=== PATIENT | female | born 1975 | race African-American/Black ===

== ENCOUNTER 2022-06-26 21:20 | Inpatient (IN) ==
[2022-06-26] MEDS ORDERED: methylPREDNISolone SOD SUC 125 MG/2 ML VIAL IV STA (21:41)
[2022-06-26] MEDS ORDERED: ALBUTEROL/IPRATROPIUM 3 ML NEB RESP TX STA (21:41)
[2022-06-26 22:14] LABS: Basophils # 0.1 10*3/uL (0.0-0.2); Basophils % 0.2 % (0.0-0.8); Eosinophils % 0.1 % (0.00-10.9); Hematocrit 23.6 VOL% (35.7-47.0); Hemoglobin 8.1 GM/DL (12.0-16.0); Immature Granulocytes % 4.2 %; Immature Granulocytes Absolute 1.71 #; Lymphocytes # 2.1 10*3/uL (1.4-4.0); Lymphocytes % 5.1 % (21.3-54.2); Mean Corpuscular HGB Conc 34.3 GM/DL (32-36); Mean Corpuscular Volume 100.9 FL (87-102); Mean Platelet Volume 13.3 FL (9.6-12.0); Monocytes # 2.8 10*3/uL (0.11-0.8); NRBC # 0.02 10*3/uL; Neutrophils % 83.4 % (38.7-73.9); Red Blood Count 2.34 MC/CUMM (3.8-5.5); Red Cell Distribution Width 20.8 % (9.3-17.3)
[2022-06-26 22:21] LABS: Platelet Count 78 T/CUMM (130-400); White Blood Count 40.4 T/CUMM (4-12)
[2022-06-26] MEDS ORDERED: cefTRIAXone 1,000 MG in SODIUM CHLORIDE 0.9% 100 ML IV STA (22:27)
[2022-06-26 22:33] LABS: Albumin 2.3 G/DL (3.4-5.0); Bilirubin,Total 1.4 MG/DL (0.20-1.00); Calcium 7.6 MG/DL (8.5-10.1); Osmolality,Calculated 283.2 MOS/KG (273-304); Potassium 5.2 MMOL/L (3.5-5.1); Total Protein 4.8 G/DL (6.4-8.2)
[2022-06-26 22:38] LABS: Anisocytosis 1+; Band Neutrophils 2 % (0-10); Burr Cells 1+; Hypochromia 1+; Lymphocytes 5 % (20-55); Total Cells Counted 100
[2022-06-26 22:39] LABS: Schistocytes Few; Target Cells Few
[2022-06-26 22:40] LABS: Platelet Estimate Decreased
[2022-06-26 23:45] LABS: Bacteria,Urine Occasional /HPF (Few); Bilirubin,Urine Negative (Negative); Blood, Urine Trace mg/dL (Negative); Glucose,Urine (UA) Negative (Negative); Ketones,Urine Negative (Negative); Nitrite,Urine Negative (Negative); Protein,Urine 100 mg/dL (Negative); RBC,Urine 1 /HPF (0-4); Squamous Epithelial Cell,Urine Occasional /HPF (0-10); Urine Appearance Clear (Clear); Urine Color Yellow (Yellow); Urine Urobilinogen 0.2 eU/dL (<2.0); Urine pH 5.5 (4.5-8.0)
[2022-06-26] MEDS ORDERED: FUROSEMIDE 40 MG/4 ML VIAL IV STA (23:58)
[2022-06-27] MEDS ORDERED: GLUCAGON 1 MG VIAL IM PRN (00:04)
[2022-06-27] MEDS ORDERED: DEXTROSE 10% 250 ML BAG IV PRN (00:04)
[2022-06-27] MEDS ORDERED: ONDANSETRON 4 MG/2 ML VIAL IV PRN (00:04)
[2022-06-27] MEDS ORDERED: ACETAMINOPHEN 325 MG TABLET PO PRN (00:04)
[2022-06-27] MEDS ORDERED: SIMETHICONE CHEW 125 MG TABLET PO PRN (00:04)
[2022-06-27] MEDS: AZITHROMYCIN INJ 500 MG in SODIUM CHLORIDE 0.9% 250 ML IV SCH (01:30)
[2022-06-27] MEDS: ALBUTEROL/IPRATROPIUM 3 ML NEB RESP TX SCH ×4 (01:48→19:26)
[2022-06-27 04:31] LABS: Basophils % 0.1 % (0.0-0.8); Hematocrit 23.2 VOL% (35.7-47.0); Hemoglobin 8.1 GM/DL (12.0-16.0); Immature Granulocytes % 3.5 %; Immature Granulocytes Absolute 1.32 #; Lymphocytes # 1.2 10*3/uL (1.4-4.0); Lymphocytes % 3.3 % (21.3-54.2); Mean Corpuscular HGB Conc 34.9 GM/DL (32-36); Mean Corpuscular Volume 98.7 FL (87-102); Mean Platelet Volume 13.1 FL (9.6-12.0); Monocytes # 1.3 10*3/uL (0.11-0.8); Monocytes % 3.4 % (1.7-12.7); Neutrophils % 89.7 % (38.7-73.9); Platelet Count 75 T/CUMM (130-400); Red Blood Count 2.35 MC/CUMM (3.8-5.5); Red Cell Distribution Width 20.6 % (9.3-17.3); White Blood Count 37.9 T/CUMM (4-12)
[2022-06-27 04:49] LABS: Band Neutrophils 4 % (0-10); Eosinophils 1 % (0-10); Hypochromia 1+; Lymphocytes 3 % (20-55); Total Cells Counted 100
[2022-06-27 04:50] LABS: Acanthocytes Few; Anisocytosis 1+; Burr Cells 1+; Macrocytosis 1+; Platelet Estimate Decreased; Target Cells Slight
[2022-06-27 04:54] LABS: Albumin 2.3 G/DL (3.4-5.0); Bilirubin,Total 1.4 MG/DL (0.20-1.00); Calcium 7.9 MG/DL (8.5-10.1); Osmolality,Calculated 285.2 MOS/KG (273-304); Potassium 5.3 MMOL/L (3.5-5.1); Total Protein 4.9 G/DL (6.4-8.2)
[2022-06-27] MEDS: methylPREDNISolone SOD SUC 40 MG/1 ML VIAL IV SCH ×3 (06:13→22:33)
[2022-06-27] MEDS ORDERED: ENOXAPARIN 40 MG/0.4 ML SYRINGE ONE (07:53)
[2022-06-27] MEDS: DOCUSATE SODIUM 100 MG CAPSULE PO SCH ×2 (08:10→22:34)
[2022-06-27] MEDS: PANTOPRAZOLE 40 MG TABLET PO SCH (08:10)
[2022-06-27] MEDS: ENOXAPARIN 40 MG/0.4 ML SYRINGE SUBCUT SCH (08:11)
[2022-06-27] MEDS: FUROSEMIDE 40 MG/4 ML VIAL IV SCH ×2 (08:12→16:13)
[2022-06-27] MEDS ORDERED: DIPHENOXYLATE/ATROPINE 2.5-0.025 MG TABLET PO SCH (13:00)
[2022-06-27] MEDS ORDERED: SODIUM POLYSTYRENE SULFATE 15 GM/60 ML BOTTLE PO STA (15:21)
[2022-06-27 16:12] LABS: % Iron Saturation 13.7 % (18-50)
[2022-06-27] MEDS ORDERED: SKIN HEALING OINT (AQUAPHOR) 50 GM TUBE TOP PRN (16:15)
[2022-06-27 16:19] LABS: Folate > 24.00 NG/ML (5.38-24.0); Vitamin B12 > 2000 PG/ML (211-911)
[2022-06-27] MEDS ORDERED: ALBUMIN 25% 50 GM/200 ML VIAL IV ONE (17:00)
[2022-06-27] MEDS: guaiFENesin 200 MG/10 ML UDCUP PO PRN (18:04)
[2022-06-27] MEDS: SODIUM BICARBONATE 650 MG TABLET PO SCH (22:34)
[2022-06-27] MEDS: cefTRIAXone 1,000 MG in SODIUM CHLORIDE 0.9% 100 ML IV SCH (22:36)
[2022-06-28] MEDS: ALBUTEROL/IPRATROPIUM 3 ML NEB RESP TX SCH ×4 (00:14→19:12)
[2022-06-28] MEDS: AZITHROMYCIN INJ 500 MG in SODIUM CHLORIDE 0.9% 250 ML IV SCH (00:44)
[2022-06-28 05:34] LABS: Basophils # 0.1 10*3/uL (0.0-0.2); Basophils % 0.1 % (0.0-0.8); Hematocrit 20.4 VOL% (35.7-47.0); Hemoglobin 7.3 GM/DL (12.0-16.0); Immature Granulocytes % 3.4 %; Immature Granulocytes Absolute 1.62 #; Lymphocytes # 1.5 10*3/uL (1.4-4.0); Mean Corpuscular HGB Conc 35.8 GM/DL (32-36); Mean Corpuscular Volume 96.2 FL (87-102); Mean Platelet Volume 13.5 FL (9.6-12.0); Monocytes % 4.2 % (1.7-12.7); Neutrophils % 89.3 % (38.7-73.9); Platelet Count 62 T/CUMM (130-400); Red Blood Count 2.12 MC/CUMM (3.8-5.5); Red Cell Distribution Width 20.2 % (9.3-17.3)
[2022-06-28 05:56] LABS: Albumin 2.7 G/DL (3.4-5.0); Bilirubin,Total 1.2 MG/DL (0.20-1.00); Calcium 8.1 MG/DL (8.5-10.1); Osmolality,Calculated 292.1 MOS/KG (273-304); Potassium 4.7 MMOL/L (3.5-5.1); Total Protein 5.2 G/DL (6.4-8.2)
[2022-06-28 05:59] LABS: Lymphocytes 4 % (20-55); Total Cells Counted 100
[2022-06-28 06:00] LABS: Platelet Estimate Decreased
[2022-06-28] MEDS: methylPREDNISolone SOD SUC 40 MG/1 ML VIAL IV SCH ×2 (06:42→17:17)
[2022-06-28] MEDS: PANTOPRAZOLE 40 MG TABLET PO SCH (08:36)
[2022-06-28] MEDS: SODIUM BICARBONATE 650 MG TABLET PO SCH ×3 (08:36→21:16)
[2022-06-28] MEDS: DOCUSATE SODIUM 100 MG CAPSULE PO SCH ×2 (08:36→21:02)
[2022-06-28] MEDS: FUROSEMIDE 40 MG/4 ML VIAL IV SCH ×2 (08:38→15:27)
[2022-06-28] MEDS: ENOXAPARIN 40 MG/0.4 ML SYRINGE SUBCUT SCH (09:41)
[2022-06-28] MEDS ORDERED: SODIUM CHLORIDE 0.9% 1,000 ML IV PRN (10:01)
[2022-06-28] MEDS ORDERED: PROCHLORPERAZINE 10 MG TABLET PO PRN (16:16)
[2022-06-28] MEDS ORDERED: ALBUTEROL 2.5 MG/3 ML NEB RESP TX PRN (16:38)
[2022-06-28] MEDS: FERROUS SULFATE 325 MG TABLET PO SCH (17:16)
[2022-06-28] MEDS: DIPHENOXYLATE/ATROPINE 2.5-0.025 MG TABLET PO PRN (19:59)
[2022-06-28] MEDS ORDERED: DIPHENOXYLATE/ATROPINE 2.5-0.025 MG TABLET PO SCH (21:00)
[2022-06-28] MEDS: BACILLUS COAGULANS CAPLET PO SCH (21:16)
[2022-06-28] MEDS: COLESTIPOL 1 GM TABLET PO SCH (21:16)
[2022-06-28] MEDS: risperiDONE 1 MG TABLET PO SCH (21:17)
[2022-06-28] MEDS: ACYCLOVIR 200 MG CAPSULE PO SCH (21:18)
[2022-06-28] MEDS: OMEGA 3 ACID ETHYL ESTERS 1 GM CAPSULE PO SCH (21:18)
[2022-06-28] MEDS: cefTRIAXone 1,000 MG in SODIUM CHLORIDE 0.9% 100 ML IV SCH (21:19)
[2022-06-28] MEDS: APPLE CIDER VINEGAR 600 MG PO SCH (21:21)
[2022-06-28] MEDS: SACCHAROMYCES BOULARDII 250 MG PO SCH (21:36)
[2022-06-29] MEDS: ALBUTEROL/IPRATROPIUM 3 ML NEB RESP TX SCH ×4 (00:05→19:28)
[2022-06-29] MEDS: methylPREDNISolone SOD SUC 40 MG/1 ML VIAL IV SCH ×3 (03:38→16:08)
[2022-06-29 06:09] LABS: Basophils # 0.1 10*3/uL (0.0-0.2); Basophils % 0.3 % (0.0-0.8); Hematocrit 25.6 VOL% (35.7-47.0); Immature Granulocytes % 3.3 %; Immature Granulocytes Absolute 1.25 #; Lymphocytes # 1.1 10*3/uL (1.4-4.0); Lymphocytes % 2.8 % (21.3-54.2); Mean Corpuscular HGB Conc 35.2 GM/DL (32-36); Mean Corpuscular Volume 92.8 FL (87-102); Mean Platelet Volume 13.1 FL (9.6-12.0); Monocytes # 1.2 10*3/uL (0.11-0.8); Monocytes % 3.1 % (1.7-12.7); Neutrophils % 90.5 % (38.7-73.9); Platelet Count 54 T/CUMM (130-400); Red Blood Count 2.76 MC/CUMM (3.8-5.5); Red Cell Distribution Width 19.4 % (9.3-17.3)
[2022-06-29 06:32] LABS: Calcium 8.2 MG/DL (8.5-10.1); Osmolality,Calculated 288.4 MOS/KG (273-304); Potassium 4.4 MMOL/L (3.5-5.1)
[2022-06-29 07:09] LABS: Lymphocytes 3 % (20-55); Platelet Estimate Decreased; Total Cells Counted 100
[2022-06-29] MEDS: ENOXAPARIN 40 MG/0.4 ML SYRINGE SUBCUT SCH (08:15)
[2022-06-29] MEDS: AZITHROMYCIN INJ 500 MG in SODIUM CHLORIDE 0.9% 250 ML IV SCH (08:16)
[2022-06-29] MEDS: FUROSEMIDE 40 MG/4 ML VIAL IV SCH ×2 (08:16→16:07)
[2022-06-29] MEDS: DOCUSATE SODIUM 100 MG CAPSULE PO SCH ×2 (08:17→21:56)
[2022-06-29] MEDS: BACILLUS COAGULANS CAPLET PO SCH ×2 (08:17→21:56)
[2022-06-29] MEDS: SODIUM BICARBONATE 650 MG TABLET PO SCH ×3 (08:17→21:56)
[2022-06-29] MEDS: COLESTIPOL 1 GM TABLET PO SCH ×2 (08:17→23:26)
[2022-06-29] MEDS: ESCITALOPRAM 10 MG TABLET PO SCH (08:17)
[2022-06-29] MEDS: ASPIRIN EC 81 MG TABLET PO SCH (08:18)
[2022-06-29] MEDS: FERROUS SULFATE 325 MG TABLET PO SCH ×2 (08:18→16:08)
[2022-06-29] MEDS: PANTOPRAZOLE 40 MG TABLET PO SCH (08:18)
[2022-06-29] MEDS: SACCHAROMYCES BOULARDII 250 MG PO SCH ×2 (08:30→23:27)
[2022-06-29] MEDS: APPLE CIDER VINEGAR 600 MG PO SCH ×2 (08:30→23:27)
[2022-06-29] MEDS: ACYCLOVIR 200 MG CAPSULE PO SCH ×2 (08:31→21:56)
[2022-06-29] MEDS: guaiFENesin 200 MG/10 ML UDCUP PO PRN (11:31)
[2022-06-29] MEDS: DIPHENOXYLATE/ATROPINE 2.5-0.025 MG TABLET PO PRN (11:31)
[2022-06-29] MEDS: OMEGA 3 ACID ETHYL ESTERS 1 GM CAPSULE PO SCH (21:56)
[2022-06-29] MEDS: risperiDONE 1 MG TABLET PO SCH (21:56)
[2022-06-29] MEDS: cefTRIAXone 1,000 MG in SODIUM CHLORIDE 0.9% 100 ML IV SCH (21:57)
[2022-06-30] MEDS: methylPREDNISolone SOD SUC 40 MG/1 ML VIAL IV SCH ×3 (00:47→18:06)
[2022-06-30 06:55] LABS: Basophils # 0.1 10*3/uL (0.0-0.2); Basophils % 0.2 % (0.0-0.8); Hematocrit 24.9 VOL% (35.7-47.0); Hemoglobin 8.7 GM/DL (12.0-16.0); Lymphocytes # 0.8 10*3/uL (1.4-4.0); Lymphocytes % 2.5 % (21.3-54.2); Mean Corpuscular HGB Conc 34.9 GM/DL (32-36); Mean Corpuscular Volume 92.9 FL (87-102); Monocytes # 0.8 10*3/uL (0.11-0.8); Monocytes % 2.5 % (1.7-12.7); NRBC # 0.02 10*3/uL; Neutrophils % 91.8 % (38.7-73.9); Platelet Count 52 T/CUMM (130-400); Red Blood Count 2.68 MC/CUMM (3.8-5.5); Red Cell Distribution Width 19.9 % (9.3-17.3); White Blood Count 32.9 T/CUMM (4-12)
[2022-06-30 07:12] LABS: Calcium 8.3 MG/DL (8.5-10.1); Osmolality,Calculated 287.5 MOS/KG (273-304); Potassium 4.1 MMOL/L (3.5-5.1)
[2022-06-30] MEDS: ALBUTEROL/IPRATROPIUM 3 ML NEB RESP TX SCH ×4 (07:14→19:28)
[2022-06-30 07:24] LABS: Lymphocytes 5 % (20-55); Total Cells Counted 100
[2022-06-30 07:25] LABS: Platelet Estimate Decreased
[2022-06-30] MEDS: BACILLUS COAGULANS CAPLET PO SCH ×2 (10:40→22:16)
[2022-06-30] MEDS: ASPIRIN EC 81 MG TABLET PO SCH (10:40)
[2022-06-30] MEDS: APPLE CIDER VINEGAR 600 MG PO SCH ×2 (10:40→22:16)
[2022-06-30] MEDS: FERROUS SULFATE 325 MG TABLET PO SCH ×2 (10:40→18:06)
[2022-06-30] MEDS: FUROSEMIDE 40 MG/4 ML VIAL IV SCH ×2 (10:40→18:06)
[2022-06-30] MEDS: SACCHAROMYCES BOULARDII 250 MG PO SCH ×2 (10:41→22:17)
[2022-06-30] MEDS: ENOXAPARIN 40 MG/0.4 ML SYRINGE SUBCUT SCH (10:41)
[2022-06-30] MEDS: COLESTIPOL 1 GM TABLET PO SCH ×2 (10:41→22:16)
[2022-06-30] MEDS: SODIUM BICARBONATE 650 MG TABLET PO SCH ×3 (10:41→22:15)
[2022-06-30] MEDS: DOCUSATE SODIUM 100 MG CAPSULE PO SCH ×2 (10:41→22:18)
[2022-06-30] MEDS: PANTOPRAZOLE 40 MG TABLET PO SCH (10:41)
[2022-06-30] MEDS: AZITHROMYCIN INJ 500 MG in SODIUM CHLORIDE 0.9% 250 ML IV SCH (10:41)
[2022-06-30] MEDS: ESCITALOPRAM 10 MG TABLET PO SCH (10:41)
[2022-06-30] MEDS: ACYCLOVIR 200 MG CAPSULE PO SCH ×2 (10:42→22:24)
[2022-06-30] MEDS: cefTRIAXone 1,000 MG in SODIUM CHLORIDE 0.9% 100 ML IV SCH (22:15)
[2022-06-30] MEDS: OMEGA 3 ACID ETHYL ESTERS 1 GM CAPSULE PO SCH (22:16)
[2022-06-30] MEDS: risperiDONE 1 MG TABLET PO SCH (22:16)
[2022-06-30] MEDS: DIPHENOXYLATE/ATROPINE 2.5-0.025 MG TABLET PO PRN (22:24)
[2022-06-30] MEDS: guaiFENesin 200 MG/10 ML UDCUP PO PRN (22:39)
[2022-07-01] MEDS: ALBUTEROL/IPRATROPIUM 3 ML NEB RESP TX SCH ×4 (00:52→19:17)
[2022-07-01] MEDS: methylPREDNISolone SOD SUC 40 MG/1 ML VIAL IV SCH ×3 (01:53→17:03)
[2022-07-01 06:40] LABS: Basophils # 0.1 10*3/uL (0.0-0.2); Basophils % 0.2 % (0.0-0.8); Hematocrit 23.6 VOL% (35.7-47.0); Hemoglobin 8.3 GM/DL (12.0-16.0); Immature Granulocytes % 2.6 %; Immature Granulocytes Absolute 0.73 #; Lymphocytes # 0.8 10*3/uL (1.4-4.0); Lymphocytes % 2.7 % (21.3-54.2); Mean Corpuscular HGB Conc 35.2 GM/DL (32-36); Mean Corpuscular Volume 91.8 FL (87-102); Mean Platelet Volume 13.1 FL (9.6-12.0); Monocytes # 0.6 10*3/uL (0.11-0.8); Neutrophils % 92.5 % (38.7-73.9); Platelet Count 63 T/CUMM (130-400); Red Blood Count 2.57 MC/CUMM (3.8-5.5); Red Cell Distribution Width 19.9 % (9.3-17.3); White Blood Count 28.4 T/CUMM (4-12)
[2022-07-01 06:56] LABS: Albumin 2.4 G/DL (3.4-5.0); Calcium 8.1 MG/DL (8.5-10.1); Osmolality,Calculated 290.5 MOS/KG (273-304); Potassium 4.3 MMOL/L (3.5-5.1); Total Protein 4.9 G/DL (6.4-8.2)
[2022-07-01 07:00] LABS: Band Neutrophils 1 % (0-10); Hypochromia Slight; Lymphocytes 1 % (20-55); Microcytosis Slight; Platelet Estimate Decreased; Total Cells Counted 100
[2022-07-01] MEDS: ESCITALOPRAM 10 MG TABLET PO SCH (09:35)
[2022-07-01] MEDS: DOCUSATE SODIUM 100 MG CAPSULE PO SCH ×2 (09:36→21:10)
[2022-07-01] MEDS: metOLazone 5 MG TABLET PO SCH (09:36)
[2022-07-01] MEDS: ASPIRIN EC 81 MG TABLET PO SCH (09:36)
[2022-07-01] MEDS: BACILLUS COAGULANS CAPLET PO SCH ×2 (09:36→21:11)
[2022-07-01] MEDS: SODIUM BICARBONATE 650 MG TABLET PO SCH ×3 (09:36→21:09)
[2022-07-01] MEDS: PANTOPRAZOLE 40 MG TABLET PO SCH (09:37)
[2022-07-01] MEDS: FERROUS SULFATE 325 MG TABLET PO SCH ×2 (09:37→17:02)
[2022-07-01] MEDS: ACYCLOVIR 200 MG CAPSULE PO SCH ×2 (09:38→21:12)
[2022-07-01] MEDS: FUROSEMIDE 40 MG/4 ML VIAL IV SCH ×2 (09:44→15:04)
[2022-07-01] MEDS: AZITHROMYCIN INJ 500 MG in SODIUM CHLORIDE 0.9% 250 ML IV SCH (10:05)
[2022-07-01] MEDS: SACCHAROMYCES BOULARDII 250 MG PO SCH (10:18)
[2022-07-01] MEDS: COLESTIPOL 1 GM TABLET PO SCH ×2 (11:40→21:11)
[2022-07-01] MEDS: cefTRIAXone 1,000 MG in SODIUM CHLORIDE 0.9% 100 ML IV SCH (21:08)
[2022-07-01] MEDS: risperiDONE 1 MG TABLET PO SCH (21:11)
[2022-07-01] MEDS: OMEGA 3 ACID ETHYL ESTERS 1 GM CAPSULE PO SCH (21:11)
[2022-07-01] MEDS: DIPHENOXYLATE/ATROPINE 2.5-0.025 MG TABLET PO PRN (21:11)
[2022-07-02] MEDS: ALBUTEROL/IPRATROPIUM 3 ML NEB RESP TX SCH ×2 (00:18→08:07)
[2022-07-02] MEDS: methylPREDNISolone SOD SUC 40 MG/1 ML VIAL IV SCH ×2 (00:40→08:31)
[2022-07-02 05:57] LABS: Basophils # 0.1 10*3/uL (0.0-0.2); Basophils % 0.2 % (0.0-0.8); Hemoglobin 8.1 GM/DL (12.0-16.0); Immature Granulocytes % 3.1 %; Immature Granulocytes Absolute 0.84 #; Lymphocytes # 0.7 10*3/uL (1.4-4.0); Lymphocytes % 2.7 % (21.3-54.2); Mean Corpuscular HGB Conc 35.2 GM/DL (32-36); Mean Corpuscular Volume 93.1 FL (87-102); Mean Platelet Volume 14.1 FL (9.6-12.0); Monocytes # 0.5 10*3/uL (0.11-0.8); NRBC # 0.02 10*3/uL; Platelet Count 75 T/CUMM (130-400); Red Blood Count 2.47 MC/CUMM (3.8-5.5); White Blood Count 26.9 T/CUMM (4-12)
[2022-07-02 06:12] LABS: Calcium 8.4 MG/DL (8.5-10.1); Osmolality,Calculated 288.8 MOS/KG (273-304)
[2022-07-02 06:24] LABS: Hypochromia Slight; Lymphocytes 3 % (20-55); Ovalocytes Slight; Platelet Estimate Decreased; Total Cells Counted 100
[2022-07-02 06:25] LABS: Microcytosis Slight
[2022-07-02] MEDS: BACILLUS COAGULANS CAPLET PO SCH (08:28)
[2022-07-02] MEDS: SODIUM BICARBONATE 650 MG TABLET PO SCH (08:28)
[2022-07-02] MEDS: ACYCLOVIR 200 MG CAPSULE PO SCH (08:29)
[2022-07-02] MEDS: PANTOPRAZOLE 40 MG TABLET PO SCH (08:29)
[2022-07-02] MEDS: FERROUS SULFATE 325 MG TABLET PO SCH (08:29)
[2022-07-02] MEDS: ASPIRIN EC 81 MG TABLET PO SCH (08:29)
[2022-07-02] MEDS: ESCITALOPRAM 10 MG TABLET PO SCH (08:29)
[2022-07-02] MEDS: metOLazone 5 MG TABLET PO SCH (08:29)
[2022-07-02] MEDS: FUROSEMIDE 40 MG/4 ML VIAL IV SCH (08:34)
[2022-07-02] MEDS: DOCUSATE SODIUM 100 MG CAPSULE PO SCH (08:36)
[2022-07-02] MEDS: COLESTIPOL 1 GM TABLET PO SCH (10:05)
[2022-07-02 12:18] VITALS: BP 141/91
== END 2022-07-02 13:18 | disposition home health service (06) | DRG 843 ==
LOC: EDUNIT# → EDBD → N.ED 21:20 → N.EDINP 06-27 00:04 → N.5E 06-27 14:12
PROVIDERS: ADMIT Internal Medicine; ATTEND Internal Medicine